=== PATIENT | female | born 1995 ===

== ENCOUNTER 2017-03-02 12:56 | Emergency (ER) | payer OTHER ==
[~2017-03-02] VITALS: Ht 160 cm; Wt 58.5 kg
[2017-03-02] MEDS ORDERED: ACETAMINOPHEN 325 MG TAB PO ONE (13:45)
[2017-03-02] MEDS ORDERED: INDOMETHACIN 25 MG CAP PO ONE (13:45)
[2017-03-02] MEDS ORDERED: INDO25CA PO (13:48)
== END 2017-03-02 14:40 | disposition home or self-care (01) ==
LOC: M ED 14:39
DX: R51 Headache (principal); F90.9 Attention-deficit hyperactivity disorder, unspecified type; J45.909 Unspecified asthma, uncomplicated